=== PATIENT | female | born 1995 | race Caucasian/White ===

== ENCOUNTER → 2017-06-01 | Outpatient (CLI) | payer BC ==
--- NOTE | 2017-06-01 21:38 | MR ---
EXAMINATION TYPE: MR brain wo con DATE OF EXAM: 06/01/2017 COMPARISON: NONE HISTORY: Headache, fainting/passing out, head injury TECHNIQUE: Multiplanar, multisequence imaging of the brain and brainstem is performed without IV cont rast. Trauma protocol. FINDINGS: Diffusion weighted images demonstrate no evidence of a recent infarct or other diffusion abnormality. There is no extraaxial fluid collection or significant white matter signal abnormality. The ventricu lar system and cisternal spaces are normal in size and appearance. The brain volume is age appropria te. T2 Star-weighted images showed no suspicious intraparenchymal blood product. Midline structures demonstrate normal morphology. The craniocervical junction appears within normal limits. Normal vascular flow voids are present. The visualized sinuses are clear and the globes are i ntact. No suspicious fluid signal bilateral mastoid air cells is present. IMPRESSION: No significant finding is seen to account for patient's symptoms.
== END | disposition home or self-care (01) ==
LOC: RADMRIMAIN 20:40
PROVIDERS: ATTEND Family Medicine
DX: R51 Headache (principal)
CPT/HCPCS: 70551

== ENCOUNTER → 2017-06-21 | Day surgery (SDC) | payer BC ==
[2017-06-17 15:18] VITALS: BMI 19.8
[~2017-06-21] MED LIST: SODIUM CHLORIDE 0.9% 1,000 ML IV SCH
[2017-06-21 09:24] VITALS: RESP 18; TEMP 98.2
[2017-06-21 10:55] VITALS: BP 126/76; PULSE 72
--- NOTE | 2017-06-21 15:23 | P.PCN ---
Preoperative Diagnosis: Diagnosis: Syncope Twelve-lead ECG report Sinus rhythm heart rate 65 beats a minute normal GA narrow QRS normal ST segments normal QT interval normal axis no delta waves Tilt table test per protocol Baseline blood pressure 112/63 mmHg heart rate in the 70s Patient was tilted upright at night and 70 per protocol there is no change in heart rate and blood pressure 1 transient episode of nausea with a normal heart rate and blood pressure no other symptoms Impression Normal heart rate and blood pressure response to upright tilting Normal twelve-lead ECG Disposition: same day
== END | disposition home or self-care (01) ==
LOC: CATHEP 08:47
PROVIDERS: ATTEND Internal Medicine Clinical Cardiac Electrophysiology
DX: R55 Syncope and collapse (principal)
CPT/HCPCS: 81025; 93005; 93660